=== PATIENT | male | born 1975 | race Caucasian/White ===

== ENCOUNTER 2016-07-14 19:01 | Observation (INO) ==
--- NOTE | 2016-07-14 20:47 | Emergency Department Note ---
Brayden Tellez Brittany, am scribing for, and in the presence of, Antonio Jean MD 20:45. Miranda Tellez Charles R, MD, personally performed the services described in this documentation, ascribed by Gabbie Owen in my presence, and it is both accurate and complete 047 . Arrival - Arrival Chief Complaint: Extremity Injury Stated Complaint: XFER FROM [facility] ARM ED Nursing Triage Note: pt sent here by [facility] for further eval of left humerus fx. after falling from a scaffold today. Mode of Arrival: Ambulatory Limitations: No Limitations Source: Patient, Family, RN Notes Reviewed Time Seen by Provider: 07/14/16 20:16 - History of Present Illness HPI Narrative: Patient is a 41 y/o white male presenting to the ED by EMS from [facility] for further evaluation of Left Humerus Fracture s/p fall today. Patient states that he was at work on a scaffold when the scaffold went from under him, resulting in him falling 12 feet to the ground, making contact with concrete. Patient notes that during fall he did hit his head. Per family friend- he talked to patient's girlfriend was told that patient most likely needed surgical procedure. Patient reports that he is a current everyday smoker. Patient has no other complaint/pain in the ED at this time. Allergies/Adverse Reactions: Allergies Allergy/AdvReac Type Severity Reaction Status Date / Time No Known Allergies Allergy Unverified 07/14/16 19:09 Home Medications: Home Medications Medication Instructions Recorded Confirmed Type No Known Home Medications [No 07/14/16 07/14/16 History Known Home Medications] Review of System - Review of System 12 point system: reviewed and no additional remarkable complaints except as stated - Review of System Constitutional: Present: as per HPI Medical,Surgical,& Family Hx - Social History Smoking Status: Unknown if ever smoked Frequency of Alcohol Use: None Type of Drug Use: Marijuana Exam Vital Signs: Vital Signs Temperature 96.8 F L 07/14/16 19:06 Pulse Rate 72 07/14/16 20:46 Respiratory Rate 20 07/14/16 20:46 Blood Pressure 131/75 07/14/16 20:46 O2 Sat by Pulse Oximetry 98 07/14/16 20:46 - General General appearance: alert, in no apparent distress - Head Head exam: Present: normocephalic. Absent: atraumatic (stitches to left of forehead just above the eyebrow from repair) - Eye Eye exam: Present: PERRL, EOMI - ENT ENT exam: Present: mucous membranes moist, TM's normal bilaterally - Neck Neck exam: Present: full ROM, trachea midline. Absent: tenderness - Chest Chest inspection: Present: symmetric chest wall rise. Absent: tenderness - Respiratory Respiratory exam: Present: normal lung sounds bilaterally. Absent: rales, rhonchi, wheezes - Cardiovascular Cardiovascular exam: Present: regular rate, normal rhythm, normal heart sounds. Absent: murmur, rubs, gallop - Abdominal Exam Abdominal exam: Present: soft, normal bowel sounds. Absent: distention, tenderness - Extremities Exam Extremities exam: Present: full ROM (left arm limited ROM), other (splinted left arm) - Back Exam Back exam: Present: full ROM. Absent: tenderness - Neurological Exam Neurological exam: Present: alert, oriented X3 - Psychiatric Psychiatric exam: Present: normal affect, normal mood - Skin Skin exam: Present: warm, dry Course - Consultations Consultation #1: Dr. Marie will admit patient Time: 21:00 Disposition Clinical Impression: Status post fall, Closed fracture of left distal humerus, Scalp laceration Case discussed with: patient, patient's family Disposition: Still a Patient Condition: Stable Time of Disposition: 21:03
--- NOTE | 2016-07-14 21:23 | XRay Report ---
Exam: XR chest 1V portable Date: 07/14/2016 9:06 PM Indication: Respiratory preop evaluation Comparison: None Technical:AP portable semierect Findings: The heart is normal in size. Minimal left basilar platelike atelectatic change present. Mediastinal and bony structures are intact. Impression: 1. Minimal left basilar platelike atelectatic change PROCEDURE INTERPRETED AT [facility]PARTMENT OF RADIOLOGY Final Report Signed by: Dr. Angel Buchanan
[2016-07-14 21:37] LABS: Basophils # 0.1 10*3/uL (0.0-0.2); Basophils % 0.7 % (0.0-0.8); Eosinophils # 0.3 10*3/uL (0.0-0.87); Eosinophils % 2.1 % (0.00-10.9); Hematocrit 43.8 VOL% (42.0-52.0); Hemoglobin 14.7 GM/DL (14.0-18.0); Immature Granulocytes % 0.4 %; Immature Granulocytes Absolute 0.05 #; Lymphocytes # 3.9 10*3/uL (1.4-4.0); Lymphocytes % 30.5 % (21.2-54.2); Mean Corpuscular HGB Conc 33.6 GM/DL (32-36); Mean Corpuscular Hemoglobin 31 PG (27-34); Mean Corpuscular Volume 93.6 FL (87-102); Mean Platelet Volume 9.3 FL (9.6-12.0); Monocytes # 1.3 10*3/uL (0.11-0.8); Monocytes % 9.8 % (1.7-12.7); Neutrophils # 7.3 10*3/uL (1.4-7.4); Neutrophils % 56.5 % (38.7-73.9); Platelet Count 306 10*3/uL (130-400); Red Blood Count 4.68 10*6/uL (3.8-5.5); Red Cell Distribution Width 13.6 % (9.3-17.3); White Blood Count 12.9 10*3/uL (4.5-13.71)
--- NOTE | 2016-07-14 21:43 | EKG Report ---
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
[2016-07-14] MEDS ORDERED: SODIUM CHLORIDE 0.9% 1,000 ML IV SCH (21:56)
[2016-07-14] MEDS ORDERED: HYDROmorphone 2 MG/1 ML VIAL IV PRN (21:56)
[2016-07-14] MEDS ORDERED: ONDANSETRON 4 MG/2 ML VIAL IV PRN (21:56)
[2016-07-14] MEDS ORDERED: MAGNESIUM HYDROXIDE SUSP 30 ML UDCUP PO PRN (21:56)
[2016-07-14 21:59] LABS: Albumin 4.3 G/DL (3.4-5.0); Bilirubin,Total 0.4 MG/DL (0.2-1.0); Calcium 9.1 MG/DL (8.5-10.1); Magnesium 2.3 MG/DL (1.8-2.4); Osmolality,Calculated 286.7 MOS/KG (273-304); Potassium 3.9 MMOL/L (3.5-5.1); Total Protein 7.7 G/DL (6.4-8.3)
[2016-07-15] MEDS ORDERED: ceFAZolin 2,000 MG in PREMIX 1 EACH IV ONE (07:19)
--- NOTE | 2016-07-15 07:20 | Orthopedic History & Physical ---
History of Present Illness Chief complaint: fracture left elbow History of present illness: Mr. Mckinney is a 41 year old male See dictated reports Home Medications Medication Instructions Recorded Confirmed Type No Known Home Medications [No 07/14/16 07/14/16 History Known Home Medications] Allergies Allergy/AdvReac Type Severity Reaction Status Date / Time No Known Allergies Allergy Unverified 07/14/16 19:09 Medical,Surgical,& Family Hx - Medical History HEENT: History of: HEENT Problems (tonsil problems) Respiratory: History of: Asthma (when he was a child) - Surgical History Abdominal Surgeries: Surgical HX of: Appendectomy - Family History Family History: Reports;: Family Cancer (maternal grandparent), Family Diabetes (maternal grandparent), Family Heart Disease (paternal grandparent([place])) - Social History Smoking Status: Smoker, status unknown Frequency of Alcohol Use: None Type of Drug Use: Marijuana Exam - Constitutional Vitals: Period Temp Pulse Resp BP Sys/Redman Pulse Ox Last 24 Hr 97.2 F-98.3 F 61-75 16-20 96-142/64-88 93-100 Results - Labs CBC & BMP: 07/14/16 21:29 07/14/16 21:29
[2016-07-15] MEDS ORDERED: PHENYLEPHRINE 1 MG/10 ML SYRINGE IV ONE (07:45)
[2016-07-15] MEDS ORDERED: LIDOCAINE 1% 5 ML VIAL ONE (07:45)
[2016-07-15] MEDS ORDERED: ONDANSETRON 4 MG/2 ML VIAL ONE (07:45)
[2016-07-15] MEDS ORDERED: NEOSTIGMINE 10 MG/10 ML VIAL ONE (07:45)
[2016-07-15] MEDS ORDERED: GLYCOPYRROLATE 0.4 MG/2 ML VIAL ONE (07:45)
[2016-07-15] MEDS ORDERED: KETOROLAC 30 MG/1 ML VIAL ONE (07:45)
[2016-07-15] MEDS ORDERED: DEXAMETHASONE 10 MG/1 ML VIAL ONE (07:45)
[2016-07-15] MEDS ORDERED: PROPOFOL 200 MG/20 ML VIAL IV ONE (07:45)
[2016-07-15] MEDS ORDERED: ROCURONIUM 100 MG/10 ML VIAL IV ONE (07:45)
[2016-07-15] MEDS ORDERED: MAGNESIUM HYDROXIDE SUSP 30 ML UDCUP PO PRN (09:04)
[2016-07-15] MEDS ORDERED: PROMETHAZINE 25 MG/1 ML VIAL IM PRN (09:04)
--- NOTE | 2016-07-15 09:09 | Discharge Summary ---
Hospital Course - Hospital Course Hospital Course: Admitted following fall with distal humerus fracture left elbow, underwent ORIF. Discharge home Diagnosis - Discharge Diagnosis (1) Closed fracture of distal end of left humerus Status: Acute Discharge Plan - Discharge Data Disposition: Disch To Home/Self Care Condition at Discharge: Stable Discharge Diet: advance to your usual diet Activity: no lifting (arm sling routine splint care) Hygiene: keep area(s) dry Weight Bearing at Discharge: weight bear as tolerated - Discharge Medications New HYDROcodone/ACETAMIN 7.5-325 [[place] 7.5-325] 2 tablet PO Q4H PRN #25 tablet PRN Reason: Pain Severe (8-10) - Follow Up or Referral - Forms/Instructions Additional Discharge Instructions: Discharge to home discharge medications [place] when necessary #25 no refills diet as tolerated. Routine splint care keep clean dry and intact in 10 days, call on Sunday for an appointment Exam - Constitutional Vitals: Period Temp Pulse Resp BP Sys/Redman Pulse Ox Last 24 Hr 97.2 F-98.3 F 61-75 16-20 96-142/64-88 93-100 Discharge Results Procedures and tests throughout hospitalization: Pending Orders 07/15/16 XR humerus LT Routine Labs on day of discharge: Labs from last 24 hours 07/14/16 07/14/16 07/14/16 21:29 21:29 21:29 WBC 12.9 RBC 4.68 Hgb 14.7 Hct 43.8 MCV 93.6 MCH 31 MCHC 33.6 RDW 13.6 Plt Count 306 MPV 9.3 L Neut % (Auto) 56.5 Lymph % (Auto) 30.5 [place] % (Auto) 9.8 Eos % (Auto) 2.1 Baso % (Auto) 0.7 Neut # (Auto) 7.3 Lymph # (Auto) 3.9 [place] # (Auto) 1.3 H Eos # (Auto) 0.3 Baso # (Auto) 0.1 Immature Gran % 0.4 Nucleated RBC % 0.0 Immature Gran # 0.05 Nucleated RBCs # 0.00 Sodium 145 Potassium 3.9 Chloride 106 Carbon Dioxide 29 Anion Gap 13.9 BUN 12 Creatinine 1.00 GFR Calculation 113 BUN/Creatinine Ratio 12.00 Glucose 87 Calculated Osmolality 286.7 Calcium 9.1 Magnesium 2.3 Total Bilirubin 0.40 AST 26 ALT 28 Alkaline Phosphatase 83 Total Protein 7.7 Albumin 4.3 Globulin 3.4 Albumin/Globulin Ratio 1.2 Blood Type O POSITIVE Antibody Screen Negative DS: Provider Date of admission: 07/14/16 21:08 Primary care physician: . No PCP Attending physician on admission: Al Marie Jr., MD Consults: 07/14/16 21:56 Consult to Anesthesiology [CONS] Routine Consulting Provider: Reason for Anesthesiology: Pre-op Clearance Discharging clinician: Al Marie Jr., MD
[2016-07-15] MEDS ORDERED: SEVOFLURANE 1 UNIT/15 MINUTE INH ONE (09:24)
[2016-07-15] MEDS ORDERED: LACTATED RINGERS 1,000 ML IV ONE (09:25)
[2016-07-15] MEDS ORDERED: fentaNYL 100 MCG/2 ML VIAL ONE (09:25)
[2016-07-15] MEDS ORDERED: MIDAZOLAM 2 MG/2 ML VIAL ONE (09:25)
[2016-07-15] MEDS ORDERED: ACETAMINOPHEN 1,000 MG/100 ML VIAL IV ONE (09:25)
[2016-07-15] MEDS ORDERED: HYDROmorphone 2 MG/1 ML VIAL IV PRN (09:49)
[2016-07-15] MEDS ORDERED: ONDANSETRON 4 MG/2 ML VIAL IV PRN (09:49)
--- NOTE | 2016-07-15 09:59 | XRay Report ---
Referring Physician: Al Marie Exam: XR left humerus intraoperative Date: July 15, 2016 at 8:49 AM Reason: ORIF left humerus Comparison: Left humerus x-rays July 14, 2016 Findings: 4 images of the left humerus were provided after performance of the procedure. Fluoroscopy time was 19.0 seconds. Images demonstrate surgical fixation of the recently seen fracture of the left lateral epicondyle, utilizing 3 surgical screws. Position and alignment appear satisfactory. No additional new acute fractures are identified. Impression: Images are presumed satisfactory for the purpose of the procedure. PROCEDURE INTERPRETED AT [facility] DEPARTMENT OF RADIOLOGY Final Report Signed by: Dr. Severiano Burkett
--- NOTE | 2016-07-15 10:56 | Anesthesia ---
Anesthesia Post OP - Post Ansesthetic Evaluation Patient seen in post op: Yes Resp: within normal limits CV: within normal limits Mental: within normal limits Temp: within normal limits Wech-Da-Ndvralmjr: within normal limits Nausea and Vomiting: within normal limits Pain: within normal limits
--- NOTE | 2016-07-15 11:47 | History and Physical Report ---
DATE OF ADMISSION: 07/14/2016 HISTORY OF PRESENT ILLNESS: A 41-year-old white male fell off a scaffold. He was approximately 10- 12 feet up. He injured his left arm. He was evaluated in [facility] and diagnosed with a dist al humerus fracture for which he was splinted and referred to [facility] for definitive treatment. He has no other complaints other than left arm pain. PAST MEDICAL HISTORY: None. MEDICATIONS: None. ALLERGIES: None. PHYSICAL EXAMINATION GENERAL: A well-developed, nourished male. HEENT: Within normal limits. NECK: Nontender. CHEST: Clear. HEART: Regular rate and rhythm. ABDOMEN: Soft, nontender. GENITOURINARY/RECTAL: Deferred. EXTREMITIES: He has no pain with general range of motion about either lower extremity or the right upper extremity. On the left side a splint is in place. He can wiggle his fingers. ------- is in tact. Capillary refill is brisk. RADIOGRAPHS: Radiographs confirm a vertical fracture involving the articular surface of the distal humerus that extends up the lateral distal humerus. It is mildly displaced and comminuted. IMPRESSION: DISTAL HUMERUS FRACTURE LEFT ELBOW. PLAN: I have discussed with him and his family the diagnosis, treatment, and recommendations includ ing indications for operative treatment, ORIF. We discussed the possibility of post-traumatic larson es, stiffness, etc. Their questions were answered and they appeared to understand and agreed to pro ceed this morning with ORIF left elbow.
[2016-07-15] MEDS ORDERED: ceFAZolin 2,000 MG in PREMIX 1 EACH IV SCH (14:00)
[2016-07-15 14:58] VITALS: BP 147/66
--- NOTE | 2016-07-15 16:59 | Operative Note ---
PREOPERATIVE DIAGNOSIS: DISTAL HUMERUS FRACTURE, LEFT ELBOW. POSTOPERATIVE DIAGNOSIS: SAME. OPERATIVE PROCEDURE: ORIF distal humerus fracture, left elbow, lateral condyle. SURGEON: Al Marie Jr., MD ANESTHESIA: General. INDICATIONS: A 41-year-old white male with injured yesterday when he fell off a scaffold. This res ulted in intraarticular fracture to the left distal humerus for which I have discussed with him hoda tment options, including the need for ORIF. OPERATIVE PROCEDURE: The patient was taken to the operating room and under general anesthetic, posi tioned in the supine position. He received Ancef preoperatively. After sterile prep and drape, the l imb was elevated, exsanguinated, and tourniquet inflated to 250 mmHg. A lateral incision was made o verlying the capitellum and distal humerus. The extensor mass was reflected off of the lateral condy le, so that it could be mobilized and visualized. An arthrotomy was performed just anterior to the condyle which allowed visualization of the articular injury. There was some comminution and impacti on of the humeral condylar surface. This was manipulated into satisfactory reduced position and secu red with multiple 4.0 cannulated [employer] screws over washer. Reduction, internal fixation was fel t to be satisfactory and permanent fluoroscopic pictures were preserved for his record. The wound wa s then irrigated and closed in a standard fashion using 0 Vicryl for the deep layer, 2-0 Vicryl for the subcutaneous layer, and josé for skin. Sterile dressing and a posterior splint was applied. The tourniquet was then deflated at 39 minutes. He was taken to the recovery room in stable condit ion.
== END 2016-07-15 15:00 | disposition home or self-care (01) ==
LOC: N.ED 19:01 → N.EDINP 21:08 → INTOOBSV 21:08 → N.3E 21:39
PROVIDERS: ADMIT Orthopaedic Surgery; ATTEND Orthopaedic Surgery